=== PATIENT | male | born 1970 | race American Indian/Alaskan Native ===

== ENCOUNTER 2017-12-29 22:22 | Emergency (ER) | payer SELFPAY ==
[2017-12-29] MEDS ORDERED: CATAPRES PO ONE (22:50)
[2017-12-29 22:54] VITALS: BP 201/100
--- NOTE | 2017-12-30 01:48 | ED Elopement Review ---
ED Pt Elopement review - Results review Lab results: CT scan of the head revealed findings concerning for cerebral aneurysm. - Call Back decision Pt Call Back Decision: Call pt to return to ED [facility] (phone number provided by the patient was called and attempted to reach the patient and informed the patient of finding on CT scan the head concerning for cerebral aneurysm, and need to return to an Emergency Dept for emergent MRA/MRI and treatment of severely elevated blood pressure.)
--- NOTE | 2017-12-30 01:55 | Cat Scan Report ---
FINAL REPORT EXAM: CT HEAD/BRAIN WO CON HISTORY: headache high BP TECHNIQUE: CT was performed from the foramen magnum through the vertex in the axial plane without the use of intravenous contrast. PRIORS: None. FINDINGS: There is a 1.5 cm partially rim calcified lesion along the left anterior [place] of [place] near the carotid bifurcation. The he/white matter attenuation pattern is normal. There is no mass lesion or mass effect. There are no abnormal extra-axial fluid collections. There is no evidence of acute intracranial hemorrhage or infarct. The ventricles are of normal size and configuration. The skull and orbits are unremarkable. The visualized paranasal sinuses are clear. IMPRESSION: 1.5 cm partially rim enhancing lesion in the area of the left carotid bifurcation. This is suspicious for an aneurysm. A less likely consideration would be a meningioma. There is no evidence of acute intracranial hemorrhage. Further evaluation with MRI/MRA of the head is recommended.
== END 2017-12-30 01:00 | disposition left against medical advice (07) ==
LOC: ED 22:22
DX: S61.219A Laceration without foreign body of unspecified finger without damage to nail, initial encounter (principal); R51 Headache; I10 Essential (primary) hypertension; E11.9 Type 2 diabetes mellitus without complications; F17.200 Nicotine dependence, unspecified, uncomplicated; W45.8XXA Other foreign body or object entering through skin, initial encounter; Y93.89 Activity, other specified; Y99.8 Other external cause status; Y92.89 Other specified places as the place of occurrence of the external cause; Z53.21 Procedure and treatment not carried out due to patient leaving prior to being seen by health care provider
CPT/HCPCS: 70450